=== PATIENT | female | born 1980 | race Caucasian/White ===

== ENCOUNTER 2024-09-30 08:54 | Emergency (ER) | payer OTHER, SELFPAY ==
--- NOTE | ~2024-09-30 | CT_ITS ---
EXAMINATION: CT ANGIOGRAM CHEST CLINICAL INFORMATION: Shortness of breath, concern for PE. COMPARISON: No prior. TECHNIQUE: Multiple axial images were obtained through the chest after the administration of 65 mL of Omnipaque 350 intravenous contrast. Extensive vascular post-processing including two-dimensional and three-dimensional reformatted images were created and reviewed on an independent workstation. This CT examination was performed using dose optimization techniques as appropriate, variously including the following: *Automated exposure control *Adjustment of mA and/or kV according to patient size (this includes techniques or standardized protocols for targeted exams where dose is matched to indication/reason for exam; i.e. extremities or head) *Use of iterative reconstruction technique FINDINGS: VASCULAR: Study quality is adequate. There is no evidence of pulmonary embolus. Normal caliber main pulmonary artery. Aorta is normal without evidence of acute aortic syndrome or aneurysm. Great vessels branch in a 2 vessel branching pattern and are patent. Heart size is normal. There is no pericardial effusion. There is no right heart strain. There is no evidence of contrast reflux into the IVC. LUNGS: Lungs are well inspired and clear bilaterally. There are no abnormal opacities or consolidations. Small airways appear normal. No effusion or pneumothorax. 4 mm nodule within the minor fissure (series 6, image 117), consistent with an intrapulmonary lymph node. 4 mm nodule left major fissure (series 6, image 66), consistent with intrapulmonary lymph node. No suspicious pulmonary nodule. MEDIASTINUM: No lymphadenopathy or mass. Normal esophagus. Central airways are patent. Imaged thyroid is normal. AXILLA/CHEST WALL: No lymphadenopathy or mass. IMAGED UPPER ABDOMEN: No abnormality. OSSEOUS STRUCTURES: No lytic or blastic bone lesion. No acute finding. CT/CT angio chest PE protocol IMPRESSION: 1. No evidence of pulmonary embolism. Normal caliber main pulmonary artery. 2. No evidence of acute aortic syndrome or aneurysm. 3. No active lung disease. 4. No acute findings in the thorax or upper abdomen. Electronically signed by: Camilo Escobedo MD 09/30/2024 11:56 AM EDT
[2024-09-30 09:06] VITALS: BP 121/77; PULSE 115; RESP 15; TEMP 36.6; O2SAT 99
[2024-09-30 09:09] VITALS: BMI 23.8
[2024-09-30 09:15] VITALS: BP 121/77; PULSE 115; RESP 19; TEMP 36.6; O2SAT 98; BMI 23.8
--- NOTE | 2024-09-30 09:18 | ED_ITS ---
HPI - General Adult General Chief complaint: Dyspnea Stated complaint: asthma Time Seen by Provider: 09/30/24 09:13 Source: patient Mode of arrival: ambulatory Limitations: no limitations History of Present Illness ED Provider: Carine Benavidez PA-C HPI narrative: Patient is a 44 year old assigned female at with a history of asthma presenting to the emergency department today with continued / worsening shortness of breath. Patient states that she was having difficulty breathing and seen at [facility] on 09/28 where she had a chest x-ray performed and COVID- 19 / influenza testing that was negative. Patient states that she was prescribed prednisone to go home with and she continues to have shortness of breath. Patient denies any dizziness, lightheadedness, abdominal pain, nausea, vomiting, fever, chills, blurry vision, double vision, loss of vision, chest pain, back pain, night sweats, pain with urination, increased urinary frequency, increased urinary urgency, blood in her urine or stool, syncope or a near syncopal episode, recent trauma or falls, bowel incontinence, bladder incontinence, or any other complaints at this time. Onset (ago): day(s) (3) Relieving factors: none Exacerbating factors: none Associated symptoms: shortness of breath Treatments prior to arrival: other (Prednisone, albuterol inhaler) Related Data Previous Rx's ?Medication ?Instructions ?Recorded hydroxyzine HCl 10 mg tablet 10 mg PO TID PRN anxiety #10 tabs 09/30/24 Allergies Allergy/AdvReac Type Severity Reaction Status Date / Time No Known Allergies Allergy Verified 09/30/24 09:18 Review of Systems 2 Constitutional: Constitutional: Reports no additional constitutional complaints, Denies chills, Denies fever(s) and Denies night sweats Eyes: Eyes: Reports no additional eye complaints, Denies blurry vision, Denies change in vision, Denies diplopia, Denies eye discharge, Denies loss of vision and Denies eye pain ENT: Denies dizziness Cardiovascular: Cardiovascular: Reports no additional cardiovascular complaints, Denies chest pain, Denies lightheadedness, Denies Loss of Consciousness and Reports dyspnea Respiratory: Respiratory: Reports no additional respiratory complaints and Reports dyspnea Gastrointestinal: Gastrointestinal: Reports no additional gastrointestinal complaints, Denies abdominal pain, Denies melena, Denies hematochezia, Denies change in bowel habits and Denies change in stool character Genitourinary: Genitourinary: Denies hematuria, Denies urinary frequency, Denies dysuria, Denies urinary incontinence, Denies urinary hesitancy and Denies urinary urgency Musculoskeletal: Musculoskeletal: Reports no additional musculoskeletal complaints, Denies numbness and Denies tingling Neurologic: Denies dizziness, Denies loss of vision, Denies numbness and Denies tingling Psychiatric: Psychiatric: Reports no additional psychiatric complaints Endocrine: Endocrine: Reports no additional endocrine complaints Hematologic/Lymphatic: Hematologic/Lymphatic: Reports no additional hematologic/lymphatic complaints Allergic/Immunologic: Allergic/Immunologic: Reports no additional allergic/immunologic complaints PMFSH Past Medical History Attestation statement: The following information was validated with the patient. (patient's validated all information) Source: old records reviewed, obtained from family (patient's provided additional history and confirmed the history provided by the patient) and nursing notes reviewed Physical Exam ED Vital Signs: Vital Signs - 24 hr 09/30/24 09:06 09/30/24 09:15 09/30/24 09:20 Temperature 97.9 F 97.9 F Pulse Rate 115 H 115 H Respiratory Rate 15 19 19 Blood Pressure 121/77 121/77 Pulse Oximetry 99 98 Oxygen Delivery Method Room Air Room Air 09/30/24 09:58 09/30/24 13:07 Temperature 98.6 F Pulse Rate 115 H 115 H Respiratory Rate 16 16 Blood Pressure 132/69 Pulse Oximetry 98 Oxygen Delivery Method Room Air BMI result Body Mass Index 23.8 Const General: cooperative, no acute distress, alert and awake Nutritional Appearance: well nourished Orientation/consciousness: patient oriented x3 HENMT Head: Yes normal to inspection and Yes atraumatic Ears: hearing grossly normal bilaterally and external ears normal General nose exam: Normal external nose present, no nasal discharge noted and no epistaxis Face and sinus: Yes normal facial exam, No abrasion and No laceration Mouth: Normal oral and palatal mucosa present, no drooling and no muffled voice Eyes General: appearance normal, both eyes and all related structures Periorbital: periorbital findings normal Eyelids: Yes eyelids normal Conjunctivae: conjunctivae normal Pupils: Equal, round and reactive pupils present EOM: EOMs intact bilaterally Neck Neck: Yes normal visual inspection, Yes full ROM and Yes no lymphadenopathy Resp Effort & Inspection: normal respiratory effort and able to speak in complete sentences Cardio Rate: tachycardic Rhythm: regular rhythm Neuro General: patient oriented x3, moves all extremities and CN's II-XI intact bilaterally Cranial nerves: Yes Equal, round and reactive pupils present Cognition (Neuro): normal cognition Extrem General: Yes normal to inspection, Yes full ROM and Yes capillary refill normal Psych Appearance: grossly normal Mental Status: mental status grossly normal Affect: normal affect Attitude: cooperative Thought process: Normal thought process present Thought content: Normal thought content present Insight: Good insight present (Psych) Medications Administered Discontinued Medications Generic Name Dose Route Start Last Admin Trade Name Leonidesq PRN Reason Stop Dose Admin Albuterol/Ipratropium 3 ml 09/30/24 09:50 09/30/24 10:00 Albuterol/Iprat 2.5/0.5mg 3 Ml Ampul.Neb INHALE 09/30/24 09:51 3 ml ONCE ONE Administration Magnesium Sulfate 2 gm in 50 mls @ 25 mls/hr 09/30/24 09:40 09/30/24 10:23 Magnesium Sulfate/H2o IV 09/30/24 11:39 Infused ONCE ONE Infusion Iohexol 100 ml 09/30/24 11:20 09/30/24 11:21 Iohexol 350 Mg/Ml 100 Ml Infus..Btl IV 09/30/24 11:21 65 ml ONCE ONE Administration Methylprednisolone Sodium Succinate 60 mg 09/30/24 10:15 09/30/24 10:19 Methylprednisolone Sod Succ 125 Mg/2 Ml Vial IVPUSH 09/30/24 10:16 60 mg ONCE ONE Administration Medical Decision Making Medical Decision Making [facility] Narrative: Patient is a 44 year old assigned female at with a history of asthma presenting to the emergency department today with continued / worsening shortness of breath. Patient's physical exam showed tachycardia which is consistent with the patient using albuterol at home. Patient's blood work was unremarkable. Patient's EKG showed sinus tachycardia. Patient's CT PE study showed no acute process. I explained my physical exam findings as well as all test results to the patient and the patient's . I answered all questions asked by the patient and the patient's . Patient received IV solu-medrol and breathing treatments which, upon re-evaluation, she stated it helped her symptoms significantly. Patient states that she is concerned her symptoms are more anxiety based and she would like something to go home on something to help her anxiety. Patient prescribed a small and low dose of hydroxyzine. I stressed the importance of the patient taking her medication as directed (either prescribed or as the over the counter packaging recommends). I stressed the importance of the patient following up with her primary care provider. I stressed the importance of the patient returning to the emergency department immediately if her symptoms were to worsen or if she were to develop any dizziness, shortness of breath, difficulty breathing, chest pain, blurry vision, loss of vision, nausea, vomiting, abdominal pain, fever, chills, back pain, or any other complaints. Patient verbalized agreement and understanding with this treatment plan and discharge. Differential Diagnosis Differential Diagnoses: The differential diagnosis associated with the presentation includes Asthma exacerbation Anxiety Shortness of breath Admission/Observation Consideration of admission/observation: Escalation of care including admission/observation considered Patient would have been admitted to the hospital had her work up had any findings where hospital admission was appropriate and her clinical presentation warranted hospital admission. Lab Data [facility] Lab Attestation statement: I reviewed the patient's lab results. My interpretation of these results are in the [facility] Rationale portion of this note. 09/30/24 09:56 09/30/24 09:56 Labs: Lab Results 09/30/24 09/30/24 09/30/24 Range/Units 09:56 10:03 10:18 WBC 7.3 (4.8-10.8) X10*3/uL RBC 4.30 (4.20-5.50) X10*6/uL Hgb 12.8 (12.0-16.0) g/dl Hct 38.0 (37.0-47.0) % MCV 88.4 (80.0-98.0) fL MCH 29.8 (27.0-33.0) pg MCHC 33.7 (31.0-35.0) g/dl RDW 12.7 (11.0-16.0) % Plt Count 254 (160-400) X10*3/uL MPV 9.8 (9.4-12.3) fL Immature Gran % (Auto) 0.4 (0.0-0.4) % Neut % (Auto) 88.7 H (45-73) % Lymph % (Auto) 8.2 L (20-40) % [place] % (Auto) 2.2 (2-11) % Eos % (Auto) 0.1 (0-4) % Baso % (Auto) 0.4 (0-2) % Lymph # (Auto) 0.6 L (1.2-4.9) X10*3/uL [place] # (Auto) 0.2 (0.1-1.2) X10*3/uL Eos # (Auto) 0.0 (0.0-0.4) X10*3/uL Baso # (Auto) 0.0 (0.0-0.2) X10*3/uL Abs Immat Gran (auto) 0.03 (0.00-0.03) X10*3/uL Absolute Neuts (auto) 6.5 (2.0-8.3) x10*3/uL Absolute Nucleated RBC 0.000 (0.0-0.012) X10*3/uL Nucleated RBC % (auto) 0.0 (0.0-0.2) /100WBC PT 11.5 (10.9-12.4) SEC INR 1.0 (0.9-1.1) VBG pH 7.43 (7.32-7.43) VBG pCO2 38 mmHg VBG pO2 46 mmHg VBG HCO3 25 (22-26) mmol/L VBG O2 Saturation 72.0 % VBG Base Excess 1.6 mmol/L Sodium 142 (135-145) mmol/L Potassium 3.5 (3.3-5.1) mmol/L Chloride 107 (96-108) mmol/L Carbon Dioxide 24 (22-29) mmol/L Anion Gap 15 (12-20) BUN 13 (9-16) mg/dL Creatinine 0.88 (0.5-1.4) mg/dL Estim Creat Clear Calc 79.3 Estimated GFR > 60 Random Glucose 108 (60-115) mg/dL Calcium 9.7 (8.4-10.2) mg/dL Magnesium 1.9 (1.6-2.6) mg/dL Total Bilirubin 0.9 (0.0-1.0) mg/dL AST 22 (5-31) U/L ALT 24 (0-31) U/L Alkaline Phosphatase 62 (39-117) U/L Troponin I High Sens < 2.7 (<3.5-17.0) ng/L B-Natriuretic Peptide 31 (<100) pg/mL Total Protein 7.8 (6.5-8.0) g/dL Albumin 4.9 (3.5-5.0) g/dL Respiratory Panel Posada See Note Adenovirus (Rapid PCR) Not Detected (Not Detect.) B.pert (TEM-PCR) Not Detected (Not Detect.) B.parapertussis DNA PCR Not Detected (Not Detect.) C. pneumoniae DNA (PCR) Not Detected (Not Detect.) Coronavirus OC43 (PCR) Not Detected (Not Detect.) Coronavirus HKU1 (PCR) Not Detected (Not Detect.) Coronavirus 229E (PCR) Not Detected (Not Detect.) Coronavirus NL63 (PCR) Not Detected (Not Detect.) Human Metapneumovir PCR Not Detected (Not Detect.) Influenza A (RT-PCR) Not Detected (Not Detect.) Influenza A (H1) PCR Not Detected (Not Detect.) Influ A (H1/09) PCR Not Detected (Not Detect.) Influenza A (H3) PCR Not Detected (Not Detect.) Influenza B (RT-PCR) Not Detected (Not Detect.) M. pneumoniae (PCR) Not Detected (Not Detect.) Parainfluenza 1 (PCR) Not Detected (Not Detect.) Parainfluenza 2 (PCR) Not Detected (Not Detect.) Parainfluenza 3 (PCR) Not Detected (Not Detect.) Parainfluenza 4 (PCR) Not Detected (Not Detect.) RSV (PCR) Not Detected (Not Detect.) Entero/Rhino (PCR) Not Detected (Not Detect.) SARS-CoV-2 RNA (RT-PCR) Not Detected (Not Detect.) Independent Interpretation I performed an independent interpretation of an: EKG and CT Scan Interpretation: My interpretation is in agreement with the radiologist's impression of this imaging study. L Report Number: [id number]: Total DLP = 206.00 mGy-cm EXAMINATION: CT ANGIOGRAM CHEST CLINICAL INFORMATION: Shortness of breath, concern for PE. COMPARISON: No prior. TECHNIQUE: Multiple axial images were obtained through the chest after the administration of 65 mL of Omnipaque 350 intravenous contrast. Extensive vascular post-processing including two-dimensional and three- dimensional reformatted images were created and reviewed on an independent workstation. This CT examination was performed using dose optimization techniques as appropriate, variously including the following: *Automated exposure control *Adjustment of mA and/or kV according to patient size (this includes techniques or standardized protocols for targeted exams where dose is matched to indication/reason for exam; i.e. extremities or head) *Use of iterative reconstruction technique FINDINGS: VASCULAR: Study quality is adequate. There is no evidence of pulmonary embolus. Normal caliber main pulmonary artery. Aorta is normal without evidence of acute aortic syndrome or aneurysm. Great vessels branch in a 2 vessel branching pattern and are patent. Heart size is normal. There is no pericardial effusion. There is no right heart strain. There is no evidence of contrast reflux into the IVC. LUNGS: Lungs are well inspired and clear bilaterally. There are no abnormal opacities or consolidations. Small airways appear normal. No effusion or pneumothorax. 4 mm nodule within the minor fissure (series 6, image 117), consistent with an intrapulmonary lymph node. 4 mm nodule left major fissure (series 6, image 66), consistent with intrapulmonary lymph node. No suspicious pulmonary nodule. MEDIASTINUM: No lymphadenopathy or mass. Normal esophagus. Central airways are patent. Imaged thyroid is normal. AXILLA/CHEST WALL: No lymphadenopathy or mass. IMAGED UPPER ABDOMEN: No abnormality. OSSEOUS STRUCTURES: No lytic or blastic bone lesion. No acute finding. CT/CT angio chest PE protocol IMPRESSION: 1. No evidence of pulmonary embolism. Normal caliber main pulmonary artery. 2. No evidence of acute aortic syndrome or aneurysm. 3. No active lung disease. 4. No acute findings in the thorax or upper abdomen. Electronically signed by: Camilo Escobedo MD 09/30/2024 11:56 AM EDT Dictated By: Camilo Escobedo MD Signed By: Electronically signed by Camilo Escobedo MD 09/30/24 1156 I independently interpreted this EKG and am in agreement with the below findings: Vent. Rate: 127 BPM Atrial Rate: 127 BPM P-R Int: 130 ms QRS Dur: 78 ms QT Int: 308 ms P-R-T Axes: 68 74 -59 degrees QTcB Int: 447 ms Sinus tachycardia No previous ECGs available DD/ 1010 Radiology Impression Discussion of test interpretation with radiology: I have reviewed the radiologist's reading. Independent Historian Clinical information obtained from an independent historian. History obtained from or confirmed by: Spouse (patient's provided additional history and confirmed the history provided by the patient. ) Critical Care Time Critical Care Time Critical Care Time: Yes Total Critical Care Time: 33 Attestation: I spent 33 minutes of Critical Care Time with this patient. This does not include time spent on separately reported billable procedures. Discharge Plan Discharge Clinical Impression: Asthma with exacerbation Patient Disposition: Home, Self-Care Instructions: Asthma (DC) Additional Instructions: You felt like a component of this may be from anxiety and requested I send something in for that - so I have. Take it as needed and continuing taking your previously prescribed medications. Follow up with your primary care provider. Return to the emergency department immediately if your symptoms worsen or if you develop any numbness, tingling, dizziness, shortness of breath, difficulty breathing, chest pain, blurry vision, loss of vision, nausea, vomiting, abdominal pain, fever, chills, back pain, or any other complaints. Please see the information below about our Patient Portal. If you are not yet enrolled in the [facility] Patient Portal, you will receive an enrollment email invitation following your visit to any [facility] setting. You may also self-enroll in the Patient Portal by visiting our website: [email or web address] The following information is required to access the Patient Portal: - Your [facility] Medical Record Number - Your personal home email address (must match what is in your electronic medical record, Registration staff can assist with this) - Name - Date of Capabilities of the Patient Portal: - Message some providers - View upcoming appointments - Access your health summary, medical history, and visit history - View current conditions and allergies - View procedure and lab results - View your medications, including guidelines, side effects, and precautions - Complete pre-appointment questionnaires requested by your provider - Ready summary reports of your office visits and procedures To access the Patient Portal Mobile Raquel, follow these directions: - Search [facility] in the Raquel Store or CUPS Store - Download the Raquel - Search for [facility] - Enter your login/password Prescriptions: New hydroxyzine HCl 10 mg tablet 10 mg PO TID PRN (Reason: anxiety) Qty: 10 0RF Referrals: Group,[facility] [Primary Care Provider, Primary Care] Stand Alone Forms: Work/School Release Interventions: ED Discharge Assessment Last Done: 09/30/24 13:07 Discharge Date/Time: 09/30/24 13:09 Print Language: Cambodian
[2024-09-30 09:20] VITALS: RESP 19
--- NOTE | 2024-09-30 09:40 | ECG_ITS ---
Test Reason : dsypnea Blood Pressure : */* mmHG Vent. Rate : 127 BPM Atrial Rate : 127 BPM P-R Int : 130 ms QRS Dur : 78 ms QT Int : 308 ms P-R-T Axes : 68 74 -59 degrees QTcB Int : 447 ms Sinus tachycardia Possible Left atrial enlargement ST & T wave abnormality, consider inferior ischemia ST & T wave abnormality, consider anterior ischemia Abnormal ECG No previous ECGs available Referred By: Carine Benavidez Electronically Signed By: ROSA ELENA TONG
[2024-09-30 09:58] VITALS: PULSE 115; RESP 16; O2SAT 99
[2024-09-30] MEDS: Albuterol/Iprat 2.5/0.5MG 3 ML AMPUL.NEB INHALE (10:00)
[2024-09-30] MEDS: Magnesium Sulfate/H2O 2 GM/50 ML PIGGYBACK IV (10:02)
[2024-09-30 10:05] LABS: MANUAL DIFF FLAG NO
[2024-09-30 10:06] LABS: Basophils Percent Auto 0.4 % (0-2); Eosinophils Percent Auto 0.1 % (0-4); Hemoglobin 12.8 g/dl (12.0-16.0); Imm Gran Abs Auto 0.03 X10*3/uL (0.00-0.03); Imm Gran Pct Auto 0.4 % (0.0-0.4); Lymphocytes Absolute Auto 0.6 X10*3/uL (1.2-4.9); Lymphocytes Percent Auto 8.2 % (20-40); Mean Corpuscular HGB Conc 33.7 g/dl (31.0-35.0); Mean Corpuscular Hemoglobin 29.8 pg (27.0-33.0); Mean Corpuscular Volume 88.4 fL (80.0-98.0); Mean Platelet Volume 9.8 fL (9.4-12.3); Monocytes Absolute Auto 0.2 X10*3/uL (0.1-1.2); Monocytes Percent Auto 2.2 % (2-11); Neutrophils Absolute Auto 6.5 x10*3/uL (2.0-8.3); Neutrophils Percent Auto 88.7 % (45-73); Platelet Count 254 X10*3/uL (160-400); Red Cell Distribution Width 12.7 % (11.0-16.0); White Blood Count 7.3 X10*3/uL (4.8-10.8)
[2024-09-30 10:07] LABS: Venous Blood Gas Refer to POC result
[2024-09-30 10:07] LABS: VBG Base Excess 1.6 mmol/L; VBG HCO3 25 mmol/L (22-26); VBG pCO2 38 mmHg; VBG pH 7.43 (7.32-7.43); VBG pO2 46 mmHg
[2024-09-30 10:12] LABS: Prothrombin Time 11.5 SEC (10.9-12.4)
[2024-09-30] MEDS: methylPREDNISolone Sod Succ 125 MG/2 ML VIAL 60 MG IVPUSH (10:19)
[2024-09-30 10:23] LABS: Alanine Aminotransferase 24 U/L (0-31); Albumin Level 4.9 g/dL (3.5-5.0); Alkaline Phosphatase 62 U/L (39-117); Anion Gap 15 (12-20); Aspartate Amino Transferase 22 U/L (5-31); Bilirubin Total 0.9 mg/dL (0.0-1.0); Blood Urea Nitrogen 13 mg/dL (9-16); Calcium 9.7 mg/dL (8.4-10.2); Carbon Dioxide 24 mmol/L (22-29); Chloride 107 mmol/L (96-108); Creatinine Clr Calc Pharmacy 79.3; Estimated Glomerular Filt Rate > 60; Glucose Random 108 mg/dL (60-115); Magnesium 1.9 mg/dL (1.6-2.6); Potassium 3.5 mmol/L (3.3-5.1); Sodium 142 mmol/L (135-145); Total Protein 7.8 g/dL (6.5-8.0)
[2024-09-30 10:26] LABS: B Type Natriuretic Peptide 31 pg/mL (<100)
[2024-09-30 10:30] LABS: Troponin-I High Sensitivity < 2.7 ng/L (<3.5-17.0)
--- OUTSIDE RECORDS SUMMARY | 2024-09-30 10:36 | XMS_ITS | Encounter Summary ---
Author Organization [facility] Address [address] [place] [address] [place] [address] Care Team Providers Care Suture Gauger Name Role Phone Unavailable Primary Care Provider Unavailabl e Encounter Details Date Type Department Care Team (Latest Contact Info) Description 12/10/2018 Abstract [facility] CONVERSIONS Dental, Provider, DDS Social History Tobacco Use Types Packs/Day Years Used Date Smoking Tobacco: Never Assessed Comments Unknown Sex and Gender Information Value Date Recorded Sex Assigned at Female 02/05/2022 10:25 AM EDT Legal Sex Female 10:25 AM EDT Gender Identity Not on file Sexual Orientation Not on file documented as of this encounter Plan of Treatment Not on file documented as of this encounter Visit Diagnoses Not on filedocumented in this encounter
[2024-09-30] MEDS: iohexoL 350 MG/ML 100 ML INFUS..BTL IV (11:21)
[2024-09-30 12:17] LABS: Adenovirus PCR Not Detected (Not Detect.); Bordetella parapertussis PCR Not Detected (Not Detect.); Bordetella pertussis PCR Not Detected (Not Detect.); Chlamydia pneumoniae PCR Not Detected (Not Detect.); Coronavirus 229E PCR Not Detected (Not Detect.); Coronavirus HKU1 PCR Not Detected (Not Detect.); Coronavirus NL63 PCR Not Detected (Not Detect.); Coronavirus OC43 PCR Not Detected (Not Detect.); Human metapneumovirus PCR Not Detected (Not Detect.); Influenza A PCR Not Detected (Not Detect.); Influenza B PCR Not Detected (Not Detect.); Mycoplasma pneumoniae PCR Not Detected (Not Detect.); Parainfluenza 1 PCR Not Detected (Not Detect.); Parainfluenza 2 PCR Not Detected (Not Detect.); Parainfluenza 3 PCR Not Detected (Not Detect.); Parainfluenza 4 PCR Not Detected (Not Detect.); RSV PCR Not Detected (Not Detect.); Rhino/Enterovirus PCR Not Detected (Not Detect.)
[2024-09-30 12:55] LABS: Influenza A H1 PCR Not Detected (Not Detect.); Influenza A H1-2009 PCR Not Detected (Not Detect.); Influenza A H3 PCR Not Detected (Not Detect.); SARS-CoV-2 PCR Not Detected (Not Detect.)
[2024-09-30 13:07] VITALS: BP 132/69; PULSE 115; RESP 16; TEMP 37; O2SAT 98
== END 2024-09-30 13:09 | disposition home or self-care (01) ==
PROVIDERS: Physician Assistant Medical; Emergency Provider Emergency Medicine
DX: J45.901 Unspecified asthma with (acute) exacerbation (principal); R06.00 Dyspnea, unspecified; R00.0 Tachycardia, unspecified; R06.02 Shortness of breath; Z79.899 Other long term (current) drug therapy
CPT/HCPCS: 36415; 71275; 80053; 82803; 83735; 83880; 84484; 85025; 85610; 87633; 93005; 96365; 96375; 99285; J2919; J3475; Q9967

== ENCOUNTER → 2024-09-30 09:40 | Outpatient (BNV) | payer OTHER, SELFPAY | PROVIDERS: Visit Provider Radiology Diagnostic Radiology | DX: R06.02 Shortness of breath (principal) | CPT/HCPCS: 71275 ==

== ENCOUNTER → 2024-09-30 09:40 | Outpatient (BNV) | payer OTHER, SELFPAY | PROVIDERS: Emergency Provider Emergency Medicine; Visit Provider Internal Medicine | DX: R00.1 Bradycardia, unspecified (principal) | CPT/HCPCS: 93010 ==